=== PATIENT | female | born 1990 | race Caucasian/White ===

== ENCOUNTER 2017-08-21 07:10 | Emergency (ER) | payer OTHER ==
[~2017-08-21 07:10] MED LIST: IBUP800T23 PO; METHO500 PO
[2017-08-21] MEDS ORDERED: ALBU6.7H INH (07:27)
[2017-08-21] MEDS ORDERED: NORE1TAB57 PO (07:27)
--- NOTE | 2017-08-21 07:55 | PD ---
HPI Chief Complaint: Pain: Acute or Chronic Time Seen by Provider: 07:24 Travel History International Travel<30 days: No Contact w/Intl Traveler<30days: No Traveled to known affect area: No History of Present Illness HPI The patient was seen and examined in the presence of the nurse. Patient noticed a tender area in her right distal thigh yesterday. She is concerned about DVT. She has no history of DVT. She has active goes to the gym regularly. No injury. No redness warmth or swelling of the leg. Symptom severity is mild. No exacerbating or alleviating factors. PFSH Past Medical History Medical History: Denies Significant Hx Influenza Vaccination: No ?: Not Past Surgical History Oral Surgery: Yes (WISDOM TEETH) Social History Alcohol Use: No Tobacco Use: Yes Substance Use: No Allergies-Medications (Allergen,Severity, Reaction): Coded Allergies: No Known Allergies (Unverified , 02/14/14) Reported Meds & Prescriptions Reported Meds & Active Scripts Active Reported Proventil Hfa 6.7 GM Inh (Albuterol Sulfate) 90 Mcg/Act Aer 2 Puff INH Q4-6H PRN Loestrin 1.5/30 (Norethindrone-Ethinyl Estradiol) 1.5-30 Mg-Mcg Tab 1 Tab PO DAILY Review of Systems General / Constitutional: No: Fever Eyes: No: Visual changes HENT: No: Headaches Cardiovascular: No: Chest Pain or Discomfort Respiratory: No: Shortness of Breath Gastrointestinal: No: Abdominal Pain Genitourinary: No: Dysuria Musculoskeletal: Positive: Pain Skin: No Rash Neurologic: No: Weakness Psychiatric: No: Depression Endocrine: No: Polydipsia Hematologic/Lymphatic: No: Easy Bruising Physical Exam Narrative Psych: Normal mood and affect. Normal insight and judgment. SKIN: Focused skin assessment reveals no rash or ulcers. Skin is warm and dry. Palpation shows no induration or nodules. Right leg: There is a short tender firm cordlike structure on the anterior distal thigh. It is approximately 2 cm in length. The leg has no redness or warmth. There is no calf tenderness. Data Data Orders Orders Us Leg Venous Doppler (08/21/17 ) MDM Medical Decision Making Medical Screen Exam Complete: Yes Emergency Medical Condition: Yes Medical Record Reviewed: Yes Differential Diagnosis Superficial thrombophlebitis, DVT, soft tissue injury Narrative Course I have reviewed the patient's electronic medical record. had a lengthy discussion with patient about ordering an ultrasound or not. She has very concerned about DVT in her risk factor of control pills. She wants an ultrasound. Ultrasound results are reviewed with her. She has a small area of superficial thrombophlebitis but her deep vein system is clear recommend some anti-inflammatory medication and warm compresses. She has going to discuss her control pills with her [employer] physician. Diagnosis Primary Impression: Thrombophlebitis Additional Instructions: The patient was advised to follow up with their physician and return if they worsen. Med/Other Pt SpecificInfo: Other Disposition: 01 DISCHARGE HOME Condition: Stable Cuate Salgado MD Aug 21, 2017 07:55
--- NOTE | 2017-08-21 08:56 | RADRPT ---
EXAM DATE/TIME: 08/21/2017 08:07 [facility] COMPARISON: No previous studies available for comparison. INDICATIONS : Right distal thigh pain. MEDICAL HISTORY : Right distal thigh pain. SURGICAL HISTORY : None. ENCOUNTER: Initial ACUITY: 1 day PAIN SCORE: 1/10 LOCATION: Right leg. TECHNIQUE: Venous ultrasound of the leg was performed from the inguinal ligament to the proximal calf. Real-linda e, color Doppler and spectral tracing, compression and augmentation techniques were used. FINDINGS: There is normal compressibility of the deep venous system from the inguinal region to the proximal ca lf. No echogenic clot is seen in the lumen of the common femoral, femoral, popliteal, and posterior tibial veins. There is a normal response of the venous system to proximal and distal augmentation an d respiration. Focal area of superficial thrombus in a branch of the greater saphenous vein. CONCLUSION: Normal examination of the deep venous system. In the region of the palpable abnormality however there is a small superficial thrombus in a branch of the greater saphenous vein. Leonardo Jimenez MD on August 21, 2017 at 8:53 Board Certified Radiologist. This report was verified electronically.
== END 2017-08-21 09:08 | disposition home or self-care (01) ==
LOC: PHEFT 07:10
DX: I80.01 Phlebitis and thrombophlebitis of superficial vessels of right lower extremity (principal); Z72.0 Tobacco use
CPT/HCPCS: 93971; 99284